=== PATIENT | female | born 1995 | race Asian ===

== ENCOUNTER 2021-07-24 01:06 | Observation (INO) | payer BC, MEDICAID ==
[~2021-07-24] VITALS: Ht 167.6 cm; Wt 63.5 kg
[2021-07-24] MEDS ORDERED: PREN-182 PO (01:47)
[2021-07-24] MEDS ORDERED: TERBUTALINE SULFATE 1MG/ML VIAL SUBCUT PRN (02:30)
[2021-07-24] MEDS ORDERED: LACTATED RINGERS 1,000 ML IV SCH (02:30)
[2021-07-24] MEDS: LACTATED RINGERS 1,000 ML IV SCH ×2 (03:26→04:00)
[2021-07-24 03:57] LABS: CLARITY URINE CLEAR (CLEAR); COLOR URINE YELLOW (YELLOW); KETONES URINE TRACE (NEGATIVE); LEUKOCYTE ESTERASE URINE 1+ (NEGATIVE); NITRITE URINE NEGATIVE (NEGATIVE); OCCULT BLOOD URINE NEGATIVE (NEGATIVE); PROTEIN URINE TRACE (NEGATIVE); SPECIFIC GRAVITY URINE 1.032 (1.005-1.030)
== END 2021-07-24 05:45 | disposition home or self-care (01) ==
LOC: 8 EST LDRP 01:06
PROVIDERS: ADMIT Specialist; ATTEND Specialist
DX: O26.893 Other specified pregnancy related conditions, third trimester (principal); R10.9 Unspecified abdominal pain; O99.891 Other specified diseases and conditions complicating pregnancy; M54.50 Low back pain, unspecified; O62.9 Abnormality of forces of labor, unspecified; O99.013 Anemia complicating pregnancy, third trimester; D64.9 Anemia, unspecified; Z3A.35 35 weeks gestation of pregnancy
CPT/HCPCS: 59025; 81003; 96360; 96361; 96372; G0378; J3105; 99281

== ENCOUNTER 2021-07-31 01:26 | Observation (INO) | payer BC, MEDICAID ==
[~2021-07-31 01:26] MED LIST: PREN-182 PO
== END 2021-07-31 05:45 | disposition home or self-care (01) ==
LOC: 8 EST LDRP 01:26
PROVIDERS: ADMIT Specialist; ATTEND Specialist
DX: O62.9 Abnormality of forces of labor, unspecified (principal); O21.2 Late vomiting of pregnancy; Z3A.36 36 weeks gestation of pregnancy
CPT/HCPCS: 59025; G0378; 99281; G0379

== ENCOUNTER 2021-08-12 03:24 | Observation (INO) | payer BC, MEDICAID ==
[~2021-08-12] VITALS: Ht 170.2 cm; Wt 64.9 kg
== END 2021-08-12 07:20 | disposition home or self-care (01) ==
LOC: 8 EST LDRP 03:24
PROVIDERS: ADMIT Obstetrics & Gynecology; ATTEND Obstetrics & Gynecology
DX: O62.9 Abnormality of forces of labor, unspecified (principal); Z3A.37 37 weeks gestation of pregnancy
CPT/HCPCS: 59025; G0378; 99281

== ENCOUNTER 2021-08-14 11:43 | Observation (INO) | payer BC, MEDICAID ==
[~2021-08-14] VITALS: Ht 170.2 cm; Wt 77.1 kg
== END 2021-08-14 13:45 | disposition home or self-care (01) ==
LOC: 8 EST LDRP 11:43
PROVIDERS: ADMIT Specialist; ATTEND Specialist
DX: O42.92 Full-term premature rupture of membranes, unspecified as to length of time between rupture and onset of labor (principal); Z3A.38 38 weeks gestation of pregnancy
CPT/HCPCS: 59025; G0378; 99281

== ENCOUNTER 2021-08-16 14:14 | Inpatient (IN) | payer BC, MEDICAID ==
[~2021-08-16] VITALS: Ht 170.2 cm; Wt 65.8 kg
[2021-08-16] MEDS ORDERED: NALOXONE HCL 0.4 MG/ML 1ML VIAL IM PRN (15:15)
[2021-08-16] MEDS ORDERED: BUTORPHANOL TARTRATE 2 MG/ML VIAL IV PRN (15:15)
[2021-08-16] MEDS ORDERED: CARBOPROST TROMETHAMINE 250 MCG/ML AMPUL IM PRN (15:15)
[2021-08-16] MEDS ORDERED: METHYLERGONOVINE MALEATE 0.2 MG/ML IM PRN (15:15)
[2021-08-16] MEDS ORDERED: MISOPROSTOL 200MCG TABLET VG PRN (15:15)
[2021-08-16] MEDS: LACTATED RINGERS 1,000 ML IV SCH ×2 (15:42→17:41)
[2021-08-16 16:41] LABS: INR 0.9; PARTIAL THROMBOPLASTIN TIME 25.8 sec (23.4-31.0); PROTHROMBIN TIME 9.8 sec (9.6-11.0)
[2021-08-16 16:46] LABS: BASOPHILS % 0.6 % (0.0-2.0); EOSINOPHILS % 0.3 % (0.0-5.0); HEMATOCRIT. 36.2 % (36.0-48.0); HEMOGLOBIN. 11.8 g/dL (12.0-16.0); LYMPHOCYTES % 11.9 % (20.0-50.0); MEAN CORPUSCULAR HEMOGLOBIN 27.5 pg (28.0-32.0); MEAN CORPUSCULAR VOLUME 84.6 fL (81.0-99.0); MEAN PLATELET VOLUME 10.3 fl (7.4-10.4); MONOCYTES % 5.6 % (2.0-8.0); NEUTROPHILS % 81.6 % (40.0-76.0); PLATELET 215 x1000/uL (130-400); RED BLOOD CELL COUNT 4.28 mill/uL (4.2-5.4); RED CELL DISTRIBUTION WIDTH 13.1 % (11.6-14.6)
[2021-08-16] MEDS ORDERED: ROPIVACAINE HCL/PF EPIDURAL 200 ML EPI SCH (17:15)
[2021-08-16 17:29] LABS: CLARITY URINE CLOUDY (CLEAR); COLOR URINE YELLOW (YELLOW); KETONES URINE NEGATIVE (NEGATIVE); LEUKOCYTE ESTERASE URINE 2+ (NEGATIVE); NITRITE URINE NEGATIVE (NEGATIVE); OCCULT BLOOD URINE 2+ (NEGATIVE); PH URINE 7.5 (4.5-8.0); PROTEIN URINE TRACE (NEGATIVE); SPECIFIC GRAVITY URINE 1.023 (1.005-1.030); UROBILINOGEN URINE 0.2 E.U./dL (0.2-1.0)
[2021-08-16] MEDS ORDERED: FENTANYL CITRATE/PF 50MCG/ML 2ML VIAL ONE (17:30)
[2021-08-16] MEDS ORDERED: ROPIVACAINE HCL/PF EPIDURAL 200 ML EPI ONE (17:30)
[2021-08-16 17:45] LABS: OPIATES URINE SCREEN NEGATIVE (NEGATIVE)
[2021-08-16 17:46] LABS: *AMPHETAMINES SCREEN URINE NEGATIVE (NEGATIVE); *BARBITURATES SCREEN URINE NEGATIVE (NEGATIVE); *BENZODIAZEPINES SCREEN URINE NEGATIVE (NEGATIVE); *COCAINE SCREEN URINE NEGATIVE (NEGATIVE); CANNABINOID URINE SCREEN NEGATIVE (NEGATIVE); METHADONE URINE SCREEN NEGATIVE (NEGATIVE); PHENCYCLIDINE URINE SCREEN NEGATIVE (NEGATIVE)
[2021-08-16] MEDS: DEXT 5%/LR + PITOCIN 20UNITS/L 1,000 ML IV SCH ×2 (17:54→23:47)
[2021-08-16] MEDS ORDERED: LIDOCAINE HCL 1% 20ML VIAL (Pyxis) INJ INFIL SCH (21:15)
[2021-08-16] MEDS ORDERED: MINERAL OIL ENEMA 133ML PR NR (22:00)
[2021-08-16] MEDS ORDERED: IBUPROFEN 400MG TABLET PO PRN (23:45)
[2021-08-16] MEDS ORDERED: GLYCERIN/WITCH HAZEL LEAF MEDICATED PAD TOP PRN (23:45)
[2021-08-16] MEDS ORDERED: HEMORRHOIDAL SUPP PR PRN (23:45)
[2021-08-16] MEDS ORDERED: DEXT 5%/LR + PITOCIN 20UNITS/L 1,000 ML IV SCH (23:45)
[2021-08-16] MEDS ORDERED: LANOLIN OINT 7GM TUBE TOP PRN (23:45)
[2021-08-16] MEDS ORDERED: BENZOCAINE/LANOLIN/ALOE VERA SPRAY TOP PRN (23:45)
[2021-08-16] MEDS ORDERED: ACETAMINOPHEN WITH CODEINE 300/30MG TABLET PO PRN (23:45)
[2021-08-16] MEDS ORDERED: DIPHENHYDRAMINE 25MG CAPSULE PO PRN (23:45)
[2021-08-16] MEDS ORDERED: BISACODYL 10MG SUPP PR PRN (23:45)
[2021-08-17 00:30] VITALS: BP 134/87
[2021-08-17 04:00] VITALS: BP 122/71
[2021-08-17] MEDS: IBUPROFEN 800MG TABLET PO PRN ×2 (04:26→19:43)
[2021-08-17 07:24] LABS: HEPATITIS B SURFACE ANTIGEN NEGATIVE
[2021-08-17 07:29] LABS: BASOPHILS % 0.2 % (0.0-2.0); EOSINOPHILS % 0.2 % (0.0-5.0); HEMATOCRIT. 32.3 % (36.0-48.0); HEMOGLOBIN. 10.7 g/dL (12.0-16.0); LYMPHOCYTES % 9.4 % (20.0-50.0); MEAN CORPUSCULAR VOLUME 84.5 fL (81.0-99.0); MEAN PLATELET VOLUME 9.3 fl (7.4-10.4); MONOCYTES % 5.9 % (2.0-8.0); NEUTROPHILS % 84.3 % (40.0-76.0); PLATELET 192 x1000/uL (130-400); RED BLOOD CELL COUNT 3.83 mill/uL (4.2-5.4); RED CELL DISTRIBUTION WIDTH 13.5 % (11.6-14.6)
[2021-08-17 07:30] VITALS: BP 117/82
[2021-08-17] MEDS ORDERED: FERROUS SULFATE 325MG TABLET PO SCH (07:30)
[2021-08-17] MEDS ORDERED: PRENATAL VIT/FE FUMARATE/FA TABLET PO SCH (09:00)
[2021-08-17] MEDS ORDERED: IBUP-2030 PO (09:59)
[2021-08-17] MEDS ORDERED: FERR-63 PO (09:59)
[2021-08-17] MEDS ORDERED: CALCIUM CARBONATE 500MG TABLET CHEW PO NR (10:00)
[2021-08-17] MEDS: SIMETHICONE 80MG TABLET CHEW PO SCH ×2 (10:17→21:00)
[2021-08-17 20:00] VITALS: BP 103/63
[2021-08-17] MEDS ORDERED: DOCUSATE SODIUM 100MG CAPSULE PO SCH (21:00)
== END 2021-08-17 23:35 | disposition home or self-care (01) | DRG 807 ==
LOC: OBSVTOIN 14:14 → 8 EST LDRP 14:14 → 8EST 23:36
PROVIDERS: ADMIT Specialist; ATTEND Specialist
PROC: 10E0XZZ Delivery of Products of Conception, External Approach (ICD-10-PCS; principal; 2021-08-16)
PROC: 0HQ9XZZ Repair Perineum Skin, External Approach (ICD-10-PCS; 2021-08-16)
PROC: 3E0R3BZ Introduction of Anesthetic Agent into Spinal Canal, Percutaneous Approach (ICD-10-PCS; 2021-08-16)
PROC: 00HU33Z Insertion of Infusion Device into Spinal Canal, Percutaneous Approach (ICD-10-PCS; 2021-08-16)
DX: O42.92 Full-term premature rupture of membranes, unspecified as to length of time between rupture and onset of labor (principal); Z37.0 Single live birth; O70.0 First degree perineal laceration during delivery; Z3A.38 38 weeks gestation of pregnancy; Z91.018 Allergy to other foods; Z91.048 Other nonmedicinal substance allergy status; Z20.822 Contact with and (suspected) exposure to COVID-19
CPT/HCPCS: 36415; 80305; 81003; 85025; 86592; 86703; 86762; 86850; 86900; 87340; 87426; J0595; J2590; J2795; J3010; J3490; J7120